=== PATIENT | female | born 1960 | race Caucasian/White ===

== ENCOUNTER 2019-12-24 18:13 | Emergency (ER) | payer MEDICARE ==
[~2019-12-24] VITALS: Ht 165.1 cm; Wt 61.2 kg
--- NOTE | 2019-12-24 19:03 | NUR ---
Patient eloped from facility. ER physician notified.
== END 2019-12-24 19:04 | disposition home or self-care (01) ==
LOC: ER 18:13
DX: Z53.21 Procedure and treatment not carried out due to patient leaving prior to being seen by health care provider (principal)
CPT/HCPCS: A4663